=== PATIENT | male | born 1975 | race Caucasian/White ===

== ENCOUNTER 2021-05-27 13:24 | Emergency (ER) | payer OTHER ==
[~2021-05-27] VITALS: Ht 180.3 cm; Wt 98.0 kg
[2021-05-27] MEDS ORDERED: CONTRAST GIVEN. MC PRN (14:15)
[2021-05-27] MEDS ORDERED: IOHEXOL 300 MG/ML 75 ML VIAL. IV ONE (14:15)
--- NOTE | 2021-05-27 14:16 | PHYS DOC ---
Past History Additional Past Medical Histor: neck pain Past Surgical History: Other Additional Past Surgical Histo: oral surgery, bilateral facsiotomies to legs. General Adult EDM: Chief Complaint: MECHANICAL FALL HPI: HPI: Patient is a 45 male coming multiple planes after a fall 11 days ago. Patient's feet went out from under him and he fell down a flight of stairs on his back and struck his head many times on the steps. Patient had a loss of consciousness but is unsure how long because he was by himself. Patient is complaining of right posterior rib pain, diffuse headache, difficulty concentrating, and ringing in his right ear and feels a fullness. The right ear complaints began about 5 days after the fall. Also complaining of bilateral neck pain Review of Systems: Review of Systems: All other systems within normal limits except for as noted in the HPI Current Medications: Current Meds: Current Medications Medications (Trade) Dose Ordered Sig/Lila Start Time Stop Time Status Last Admin Dose Admin Info (Do NOT chart on this entry -- for MONITORING) 1 each PRN DAILY PRN 05/27/21 14:15 05/29/21 14:14 Iohexol (Omnipaque 300 Mg/ml) 75 ml 1X ONCE 05/27/21 14:15 05/27/21 14:16 Allergies: Allergies: Allergies Coded Allergies Type Severity Reaction Last Updated Verified Sulfa (Sulfonamide Antibiotics) Allergy Unknown 05/27/21 Yes Physical Exam: PE: Constitutional: Well developed, well nourished, no acute distress, non-toxic appearance. [] HENT: Normocephalic, atraumatic, bilateral external ears normal, nose normal. No albarado sign or crepitus darkening of left TM but vision occluded by cerumen [] Eyes: PERRLA, conjunctiva normal, no discharge. [] Neck: No rigidity, supple, no stridor. [] Cardiovascular: Regular rate and rhythm, brisk cap refill [] Lungs & Thorax: Non labored symmetric respirations, no tachypnea or respiratory distress. Tenderness to right posterior ribs [] Abdomen: Soft, nondistended. Skin: Warm, dry, no erythema, no rash. [] Back: Unremarkable Extremities: No deformities, range of motion grossly intact, no lower extremity edema [] Neurologic: Alert and oriented X 3, no focal deficits noted. [] Psychologic: Affect normal, judgement normal, mood normal. [] Current Patient Data: Vital Signs: Vital Signs Date Time Temp Pulse Resp B/P (MAP) Pulse Ox O2 Delivery O2 Flow Rate FiO2 05/27/21 13:35 98.1 68 16 162/112 (129) 99 EKG: EKG: [] Radiology/Procedures: Radiology/Procedures: [address] [address] IMAGING REPORT Signed PATIENT: PRAVEEN PAEZ RACCOUNT: [id number] : 1975 LOCATION: ER AGE: 45 SEX: M EXAM STATUS: REG ER ORD. PHYSICIAN: YOSI MANUEL MD REASON: trauma PROCEDURE: CT HEAD AND CERVICAL SPINE WO EXAM: CT HEAD WITHOUT IV CONTRAST CLINICAL HISTORY: Reason: trauma / Spl. Instructions: / History: COMPARISON: None. TECHNIQUE: Routine CT of the head without contrast. Soft tissues and bone windows were reviewed. PQRS compliance statement - One or more of the following individualized dose reduction techniques were utilized for this study: 1. Automated exposure control 2. Adjustment of the mA and/or kV according to patient size 3. Use of iterative reconstruction technique FINDINGS: High density collection in the middle cranial fossa adjacent to the right temporal lobe likely represents epidural hematoma although extra-axial high density mass such as meningioma could have this appearance. Hemorrhage is favored as there is white matter low attenuation/edema in the right temporal lobe and small high density collection along the falx anteriorly. Low- attenuation in the frontal regions bilaterally in the anterior cranial fossa likely contusion. Crocker-white differentiation is grossly maintained. There is no mass effect or shift of the intracranial structures. The ventricles, basilar cisterns and cortical sulci are normal in size and conf iguration for the patients stated age. The cerebellum and brainstem are unremarkable. The calvarium demonstrates no evidence of fracture or focal lesion. There is normal aeration of the visualized paranasal sinuses and mastoid air cells. The visualized portions of the orbits are normal. IMPRESSION: 1. High density extra-axial collection in the middle cranial fossa likely represents extra-axial hemorrhage such as epidural hematoma. Associated low attenuation in the parenchyma likely contusion or reactive edema. 2. Trace parafalcine high density anteriorly likely trace hemorrhagic products. 3. Bifrontal low-attenuation may represent contusions. EXAM: CT CERVICAL SPINE WITHOUT IV CONTRAST CLINICAL HISTORY: Reason: trauma / Spl. Instructions: / History: COMPARISON: None available. TECHNIQUE: Helical CT of the cervical spine was performed. Axial, coronal and sagittal reformatted images were also performed. PQRS compliance statement - One or more of the following individualized dose reduction techniques were utilized for this study: 1. Automated exposure control 2. Adjustment of the mA and/or kV according to patient size 3. Use of iterative reconstruction technique FINDINGS: Vertebral body heights are preserved. No spondylolisthesis. Mild C4-5, C5-6 and C6-7 disc height loss. Small associated posterior disc osteophyte complexes. IMPRESSION: No acute cervical spine fracture or subluxation. Findings of intracranial hemorrhage discussed with YOSI MANUEL MD at 05/27/2021 3:26 PM. FOR INTERNAL CODING PURPOSES RESULT CODE: (C) Electronically signed by: Phill Arteaga MD (05/27/2021 3:27 PM) [facility] DICTATED AND SIGNED BY: PHILL ARTEAGA MD DATE: 05/27/211511 CC: YOSI MANUEL MD; PCP,NO ~MTH0 0 [][place] [address] IMAGING REPORT Signed PATIENT: PRAVEEN PAEZ RACCOUNT: [id number] : 1975 LOCATION: ER AGE: 45 SEX: M EXAM STATUS: REG ER ORD. PHYSICIAN: YOSI MANUEL MD REASON: trauma, fell down stairs 1 week ago, pain to left ribs PROCEDURE: CT CHEST ABD PELVIS W/CONTRAST CT scan of the chest, abdomen and pelvis with contrast 05/27/2021 CLINICAL HISTORY: Patient fell down stairs one week ago. Left-sided pain. TECHNIQUE: After the intravenous administration of 75 cc of Omnipaque 300 only, contiguous, 0.625 mm axial sections were obtained through the chest, abdomen and pelvis. 3 mm reconstructed axial, sagittal and coronal images were obtained. One or more of the following individualized dose reduction techniques were utilized for this study: 1. Automated exposure control. 2. Adjustment of the mA and/or kV according to patient size. 3. Use of iterative reconstruction technique. FINDINGS: No mediastinal hematoma is seen. The heart and thoracic aorta are within normal limits. Small areas of gynecomastia are seen bilaterally. Small calcified left hilar and mediastinal lymph nodes are noted. No acute pulmonary infiltrate is seen. No pleural effusion or pneumothorax is noted. The liver parenchyma has a decreased attenuation consistent with fatty infiltration. The spleen, pancreas, adrenal glands and kidneys are within normal limits. Atherosclerotic calcification abdominal aorta is seen. The abdominal aorta tapers normally. The gallbladder is well-distended. No free fluid or free air is seen within the abdomen. There is no evidence of bowel obstruction. The appendix is well-visualized and is within normal limits. Images through pelvis demonstrate the urinary bladder with urine. Calcifications are seen within the pelvis consistent with phleboliths. A moderate amount of stool is seen involving the rectum. No free fluid is seen. No pelvic hematoma is noted. Minimal S-shaped curvature of the thoracolumbar spine is seen. Degenerative changes are seen involving the thoracic and throughout the lumbar spine. No fracture is seen. IMPRESSION: No acute abnormality is seen. Electronically signed by: Marin Shay MD (05/27/2021 3:36 PM) [id number] DICTATED AND SIGNED BY: MARIN SHAY MD DATE: 05/27/21 1518 CC: YOSI MANUEL MD; PCP,NO ~MTH0 0 Heart Score: C/O Chest Pain: No Risk Factors: Risk Factors: DM, Current or recent (<one month) smoker, HTN, HLP, family history of CAD, obesity. Risk Scores: Score 0 - 3: 2.5% MACE over next 6 weeks - Discharge Home Score 4 - 6: 20.3% MACE over next 6 weeks - Admit for Clinical Observation Score 7 - 10: 72.7% MACE over next 6 weeks - Early Invasive Strategies Course & Med Decision Making: Course & Med Decision Making Pertinent Labs and Imaging studies reviewed. (See chart for details) Discussed further treatment with patient, patient requesting to go to [facility] on the [address] [place] due to proximity of family. [] [place] Disclaimer: [place] Disclaimer: This electronic medical record was generated, in whole or in part, using a voice recognition dictation system. Departure Departure: Impression: Primary Impression: Fall down stairs Additional Impressions: Epidural hematoma Right rib fracture Disposition: 02 SHORT TERM HOSPITAL Condition: GUARDED Referrals: PCP,NO (PCP) YOSI MANUEL MD May 27, 2021 14:15
[2021-05-27 15:07] LABS: BASO # 0.1 x10^3/uL (0.0-0.2); BASO % 1 % (0-3); EOS # 0.1 x10^3/uL (0.0-0.7); EOS % 3 % (0-3); HEMATOCRIT 42.3 % (39.0-53.0); HEMOGLOBIN 14.5 g/dL (13.0-17.5); LYMPH # 1.4 x10^3/uL (1.0-4.8); LYMPH % 24 % (24-48); MEAN CORPUSCULAR HEMOGLOBIN 31 pg (25-35); MEAN CORPUSCULAR HGB CONC 34 g/dL (31-37); MEAN CORPUSCULAR VOLUME 89 fL (79-100); MONO # 0.5 x10^3/uL (0.0-1.1); MONO % 9 % (0-9); NEUT # 3.5 x10^3uL (1.8-7.7); NEUT % 63 % (31-73); PLATELET COUNT 302 x10^3/uL (140-400); RED BLOOD COUNT 4.76 x10^6/uL (4.30-5.70); RED CELL DISTRIBUTION WIDTH 12.1 % (11.5-14.5); WHITE BLOOD COUNT 5.6 x10^3/uL (4.0-11.0)
[2021-05-27 15:14] LABS: CALCIUM 9.7 mg/dL (8.5-10.1); GFR 81.2; POTASSIUM 3.9 mmol/L (3.5-5.1)
[2021-05-27 15:19] LABS: ALBUMIN 4.2 g/dL (3.4-5.0); TOTAL BILIRUBIN 1.5 mg/dL (0.2-1.0); TOTAL PROTEIN 8.5 g/dL (6.4-8.2)
[2021-05-27 15:20] VITALS: BP 161/104
--- NOTE | 2021-05-27 15:29 | RAD ---
EXAM: CT HEAD WITHOUT IV CONTRAST CLINICAL HISTORY: Reason: trauma / Spl. Instructions: / History: COMPARISON: None. TECHNIQUE: Routine CT of the head without contrast. Soft tissues and bone windows were reviewed. PQRS compliance statement - One or more of the following individualized dose reduction techniques wer e utilized for this study: 1. Automated exposure control 2. Adjustment of the mA and/or kV according to patient size 3. Use of iterative reconstruction technique FINDINGS: High density collection in the middle cranial fossa adjacent to the right temporal lobe likely repres ents epidural hematoma although extra-axial high density mass such as meningioma could have this appe arance. Hemorrhage is favored as there is white matter low attenuation/edema in the right temporal lo be and small high density collection along the falx anteriorly. Low-attenuation in the frontal region s bilaterally in the anterior cranial fossa likely contusion. Crocker-white differentiation is grossly maintained. There is no mass effect or shift of the intracrania l structures. The ventricles, basilar cisterns and cortical sulci are normal in size and configuration for the paulo ents stated age. The cerebellum and brainstem are unremarkable. The calvarium demonstrates no evidence of fracture or focal lesion. There is normal aeration of the visualized paranasal sinuses and mastoid air cells. The visualized portions of the orbits are normal. IMPRESSION: 1. High density extra-axial collection in the middle cranial fossa likely represents extra-axial hem orrhage such as epidural hematoma. Associated low attenuation in the parenchyma likely contusion or r eactive edema. 2. Trace parafalcine high density anteriorly likely trace hemorrhagic products. 3. Bifrontal low-attenuation may represent contusions. EXAM: CT CERVICAL SPINE WITHOUT IV CONTRAST CLINICAL HISTORY: Reason: trauma / Spl. Instructions: / History: COMPARISON: None available. TECHNIQUE: Helical CT of the cervical spine was performed. Axial, coronal and sagittal reformatted im ages were also performed. PQRS compliance statement - One or more of the following individualized dose reduction techniques wer e utilized for this study: 1. Automated exposure control 2. Adjustment of the mA and/or kV according to patient size 3. Use of iterative reconstruction technique FINDINGS: Vertebral body heights are preserved. No spondylolisthesis. Mild C4-5, C5-6 and C6-7 disc height loss. Small associated posterior disc osteophyte complexes. IMPRESSION: No acute cervical spine fracture or subluxation. Findings of intracranial hemorrhage discussed with YOSI MANUEL MD at 05/27/2021 3:26 PM. FOR INTERNAL CODING PURPOSES RESULT CODE: (C) Electronically signed by: Phill Chacon MD (05/27/2021 3:27 PM) [facility]
[2021-05-27] MEDS ORDERED: LIDOCAINE (700MG/PATCH) PATCH. TD SCH (15:30)
[2021-05-27] MEDS ORDERED: ONDANSETRON PF 4 MG/2 ML VIAL. IVP ONE (15:30)
--- NOTE | 2021-05-27 15:38 | RAD ---
CT scan of the chest, abdomen and pelvis with contrast 05/27/2021 CLINICAL HISTORY: Patient fell down stairs one week ago. Left-sided pain. TECHNIQUE: After the intravenous administration of 75 cc of Omnipaque 300 only, contiguous, 0.625 mm axial sections were obtained through the chest, abdomen and pelvis. 3 mm reconstructed axial, sagitt al and coronal images were obtained. One or more of the following individualized dose reduction techniques were utilized for this study: 1. Automated exposure control. 2. Adjustment of the mA and/or kV according to patient size. 3. Use of iterative reconstruction technique. FINDINGS: No mediastinal hematoma is seen. The heart and thoracic aorta are within normal limits. Sma ll areas of gynecomastia are seen bilaterally. Small calcified left hilar and mediastinal lymph nodes are noted. No acute pulmonary infiltrate is seen. No pleural effusion or pneumothorax is noted. The liver parenchyma has a decreased attenuation consistent with fatty infiltration. The spleen, panc reas, adrenal glands and kidneys are within normal limits. Atherosclerotic calcification abdominal aorta is seen. The abdominal aorta tapers normally. The gallb ladder is well-distended. No free fluid or free air is seen within the abdomen. There is no evidence of bowel obstruction. The appendix is well-visualized and is within normal limits. Images through pelvis demonstrate the urinary bladder with urine. Calcifications are seen within the pelvis consistent with phleboliths. A moderate amount of stool is seen involving the rectum. No free fluid is seen. No pelvic hematoma is noted. Minimal S-shaped curvature of the thoracolumbar spine is seen. Degenerative changes are seen involvin g the thoracic and throughout the lumbar spine. No fracture is seen. IMPRESSION: No acute abnormality is seen. Electronically signed by: Marin Shay MD (05/27/2021 3:36 PM) [id number]
[2021-05-27] MEDS ORDERED: PATCH REMOVAL. MC SCH (21:00)
== END 2021-05-27 16:17 | disposition short-term general hospital (02) ==
LOC: ER 13:24
DX: S22.31XA Fracture of one rib, right side, initial encounter for closed fracture (principal); S06.4X9A Epidural hemorrhage with loss of consciousness of unspecified duration, initial encounter; H93.11 Tinnitus, right ear; Z88.2 Allergy status to sulfonamides; W10.8XXA Fall (on) (from) other stairs and steps, initial encounter; Y93.89 Activity, other specified; Y92.89 Other specified places as the place of occurrence of the external cause; Y99.8 Other external cause status
CPT/HCPCS: 36415; 70450; 71260; 72125; 74177; 80053; 85025; 85610; 99285; Q9967